=== PATIENT | male | born 1990 ===

== ENCOUNTER 2017-11-13 23:09 | Emergency (ER) | payer SELFPAY ==
[2017-11-13 23:24] VITALS: BP 116/67; PULSE 89; RESP 20; TEMP 98.2; O2SAT 100
[2017-11-13] MEDS ORDERED: DiphenhydrAMINE 50 mg/ml Inj IVP STA (23:53)
[2017-11-13] MEDS ORDERED: MethylPREDNISolone 40 mg Vial IVP STA (23:54)
[2017-11-14] MEDS ORDERED: DiphenhydrAMINE 50 mg/ml Inj ONE (00:04)
--- NOTE | 2017-11-14 00:46 | C.PDOC ---
History Of Present Illness 27 year old male presents to the ED for evaluation of a generalized pruritic rash which began yesterday. Patient has a known seafood allergy. He notes he has been eating outside and is unsure if he had contact with any seafood. Patient denies throat swelling, shortness of breath, cough. Time Seen by Provider: 11/13/17 23:40 Chief Complaint (Nursing): Allergic Reaction History Per: Patient History/Exam Limitations: no limitations Onset/Duration Of Symptoms: Hrs Current Symptoms Are (Timing): Still Present Possible Cause: Unknown Associated Symptoms: Skin Rash Home/EMS Treatment: None Additional History Per: Patient Past Medical History Reviewed: Historical Data, Nursing Documentation, Vital Signs Vital Signs: Last Vital Signs Temp 98.2 F 11/13/17 23:19 Pulse 89 11/13/17 23:19 Resp 20 11/13/17 23:19 BP 116/67 11/13/17 23:19 Pulse Ox 100 11/14/17 03:40 - Medical History PMH: No Chronic Diseases Surgical History: No Surg Hx Family History: States: Unknown Family Hx - Social History Hx Alcohol Use: No Hx Substance Use: No - Immunization History Hx Tetanus Toxoid Vaccination: No Hx Influenza Vaccination: No Hx Pneumococcal Vaccination: No Review Of Systems ENT: Negative for: Throat Swelling Respiratory: Negative for: Cough, Shortness of Breath Skin: Positive for: Rash (generalized, pruritic ) Physical Exam - Physical Exam Appears: Non-toxic, No Acute Distress Skin: Warm, Dry, Other (Diffuse urticaria) Head: Atraumatic, Normacephalic Eye(s): bilateral: Normal Inspection Oral Mucosa: Moist Throat: Normal, No Erythema, No Exudate, No Drooling Neck: Supple Chest: Symmetrical, No Deformity, No Tenderness Cardiovascular: Rhythm Regular, No Murmur Respiratory: Normal Breath Sounds, No Rales, No Rhonchi, No Wheezing Extremity: Normal ROM, Capillary Refill (less than 2 seconds ) Neurological/Psych: Oriented x3, Normal Speech, Normal Cognition ED Course And Treatment O2 Sat by Pulse Oximetry: 100 (on RA) Pulse Ox Interpretation: Normal Progress Note: Benadryl IVP, Pepcid IVP, and Solu-Medrol IVP given. Reassessment Condition: Improved (remained stable) Disposition Counseled Patient/Family Regarding: Diagnosis, Need For Followup - Disposition Referrals: [facility] at [facility] [Outside] Disposition: HOME/ ROUTINE Disposition Time: 00:44 Condition: STABLE Additional Instructions: Follow up in clinic Take medications as directed Return to ER if worse Prescriptions: Famotidine [Pepcid] 20 mg PO DAILY #10 tab predniSONE [Prednisone] 40 mg PO DAILY #8 tab Instructions: Hives (DC) Forms: Work/School/Gym Excuse, [employer] (Slovak) Print Language: HUNGARIAN - Clinical Impression Clinical Impression: Allergic urticaria - 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 - Scribe Statement The provider has reviewed the documentation as recorded by the Scribe (Jocelyn Barcenas) All medical record entries made by the Scribe were at my direction and personally dictated by me. I have reviewed the chart and agree that the record accurately reflects my personal performance of the history, physical exam, medical decision making, and the department course for this patient. I have also personally directed, reviewed, and agree with the discharge instructions and disposition.
== END 2017-11-14 00:58 | disposition home or self-care (01) ==
LOC: C.ER 23:09
DX: L50.0 Allergic urticaria (principal)
CPT/HCPCS: 96374; 96375; 99284; J1200; J2920

== ENCOUNTER 2017-12-25 20:03 | Emergency (ER) | payer SELFPAY ==
[2017-12-25 20:14] VITALS: BP 146/83; PULSE 90; RESP 18; TEMP 98; O2SAT 100
[2017-12-25] MEDS ORDERED: Lidocaine 2% Inj (20ml) INFIL STA (21:59)
--- NOTE | 2017-12-25 22:07 | C.PDOC ---
History Of Present Illness 27 year old male presents to the ED for an evaluation of right index finger injury that occurred one week ago. Patient states he jammed finger in door. Patient complaining of swelling and pain to right index finger. He immobilized finger with finger splint. Time Seen by Provider: 12/25/17 20:37 Chief Complaint (Nursing): Finger,Hand,&Wrist History Per: Patient History/Exam Limitations: no limitations Onset/Duration Of Symptoms: Days Current Symptoms Are (Timing): Still Present Quality: "Pain" Exacerbating Factor(s): Movement Past Medical History Reviewed: Historical Data, Nursing Documentation, Vital Signs Vital Signs: Last Vital Signs Temp 98 F 12/25/17 20:11 Pulse 90 12/25/17 20:11 Resp 18 12/25/17 20:11 BP 146/83 12/25/17 20:11 Pulse Ox 100 12/25/17 20:11 - Medical History PMH: No Chronic Diseases Other Surgeries: Hx of surgeries Family History: States: No Known Family Hx - Social History Hx Alcohol Use: Yes Hx Substance Use: No - Immunization History Hx Tetanus Toxoid Vaccination: No Hx Influenza Vaccination: No Hx Pneumococcal Vaccination: No Review Of Systems Except As Marked, All Systems Reviewed And Found Negative. Musculoskeletal: Positive for: Other (right index finger swelling and pain) Neurological: Negative for: Weakness, Numbness Physical Exam - Physical Exam Appears: Non-toxic Skin: Warm, Dry Head: Normacephalic Eye(s): bilateral: Normal Inspection Nose: Normal Oral Mucosa: Moist Extremity: No Normal ROM (pain with movement), Tenderness, Deformity (deformity of right index finger at the PIP joint ), Swelling Pulses: Left Radial: Normal, Right Radial: Normal Neurological/Psych: Oriented x3, Normal Speech, Normal Sensation, Normal Reflexes Gait: Steady ED Course And Treatment O2 Sat by Pulse Oximetry: 100 (RA) Pulse Ox Interpretation: Normal Progress Note: XR of right hand ordered - shows dislocation of PIP joint of right index finger. Joint reduction was unsuccessful. Case discussed with Dr. Holguin, hand specialist, who sts its very unlikely to reduce a dislocation after a week. She instructed to d/c patient home, follow up with her to schedule surgical reduction. Patient instructed to apply to [facility] and follow up with Dr. Holguin for surgery. Finger splint applied to right index finger. Disposition - Disposition Referrals: Cary Holguin MD [Staff Provider] - [facility] [Outside] Disposition: HOME/ ROUTINE Disposition Time: 22:34 Condition: STABLE Additional Instructions: Follow up with Hand specialist and with Medical clinic within 1-2 days. Return to ED if feel worse. 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 - Scribe Statement The provider has reviewed the documentation as recorded by the Scribe China Esposito All medical record entries made by the Donnyibaaron were at my direction and personally dictated by me. I have reviewed the chart and agree that the record accurately reflects my personal performance of the history, physical exam, medical decision making, and the department course for this patient. I have also personally directed, reviewed, and agree with the discharge instructions and disposition.
--- NOTE | 2017-12-26 07:51 | RAD ---
Date of service: 12/25/2017 PROCEDURE: Right Index finger radiographs. HISTORY: injury COMPARISON: None. TECHNIQUE: AP radiograph of the right hand, as well as spot oblique and lateral images of index finger were obtained. FINDINGS: RIGHT INDEX FINGER: Chip fracture fragment volar anterior 2nd proximal phalanx-donor site probable proximal middle phalanx JOINTS: The 2nd middle phalanx is dorsally dislocated relative to the proximal phalanx. A tiny ossification probable osseous chip fracture fragment projects volar to the 2nd proximal phalangeal distal head. A sesamoid bone is another consideration. SOFT TISSUES: Regional soft tissue swelling 2nd PIP joint OTHER FINDINGS: None. IMPRESSION: Second digit dislocation with volar chip fracture fragment suspect. Comments: Study marked for PA review .
== END 2017-12-25 22:45 | disposition home or self-care (01) ==
LOC: SUPCPDRO 20:03 → C.ER 20:03
DX: S63.250A Unspecified dislocation of right index finger, initial encounter (principal); W23.0XXA Caught, crushed, jammed, or pinched between moving objects, initial encounter